=== PATIENT | female | born 1945 | race Caucasian/White ===

== ENCOUNTER 2017-02-02 06:33 | Inpatient (IN) | payer BC, MEDICARE ==
[2017-01-30 15:28] LABS: BASOPHILS # (AUTO) 0.1 (0.0-0.1); BASOPHILS % 0.8 % (0.0-1.0); EOSINOPHILS # (AUTO) 0.2 (0.0-0.4); HEMATOCRIT 35.7 % (34.2-44.1); HEMOGLOBIN 11.2 g/dL (12.0-16.0); LYMPHOCYTES # (AUTO) 1.8 (1.0-3.2); LYMPHOCYTES % 19.8 % (18.0-39.1); MEAN CORPUSCULAR HEMOGLOBIN 25.3 pg (28-32); MEAN CORPUSCULAR HGB CONC 31.4 g/dL (31-35); MEAN CORPUSCULAR VOLUME 80.8 fL (81-99); MONOCYTES # (AUTO) 0.8 (0.2-0.8); MONOCYTES % 8.3 % (4.4-11.3); NEUTROPHILS # (AUTO) 6.2 (2.1-6.9); NEUTROPHILS % 68.8 % (38.7-80.0); PLATELET COUNT 339 x10e3/uL (140-360); RED BLOOD COUNT 4.42 x10e6/uL (3.6-5.1); RED CELL DISTRIBUTION WIDTH 14.9 % (11.7-14.4)
[2017-01-30 15:40] LABS: ANION GAP 13.7 mmol/L (8-16); CALCIUM 8.9 mg/dL (8.4-10.2); CREATININE, SERUM 0.94 mg/dL (0.57-1.11); POTASSIUM 3.7 mmol/L (3.5-5.1)
[~2017-02-02] VITALS: Ht 167.6 cm; Wt 89.8 kg
[~2017-02-02 06:33] MED LIST: BUSPIRONE HCL5 MG PO; LOSARTAN-HCTZ1 EACH PO; ROPIVACAINE 246.25 MG, EPINEPHRINE HCL 1:1000 0.5 MG, CLONIDINE HCL 0.08 MG, KETOROLAC ... INJ ONE; SERTRALINE HCL100 MG PO; SYNTHROID100 MCG PO
[2017-02-02] MEDS ORDERED: VANCOMYCIN 1GM/NS 250 ML 250 ML ONE (07:14)
[2017-02-02] MEDS ORDERED: GABAPENTIN 300 MG CAP ONE (07:14)
[2017-02-02] MEDS ORDERED: DEXAMETHASONE SOD PHOS 10 MG/1 ML VIAL ONE (07:14)
[2017-02-02] MEDS ORDERED: CELECOXIB 200 MG CAP ONE (07:29)
[2017-02-02] MEDS ORDERED: MUPIROCIN 2% OINT 22 GM TUBE ONE (08:17)
[2017-02-02] MEDS ORDERED: TRANEXAMIC ACID 1,000 MG/10 ML ML ONE (08:17)
[2017-02-02] MEDS ORDERED: BACITRACIN 50,000 UNIT VIAL ONE (08:18)
[2017-02-02] MEDS ORDERED: SODIUM CHLORIDE 0.9% 1000ML 1,000 ML IV SCH (10:12)
[2017-02-02] MEDS ORDERED: DIPHENHYDRAMINE HCL INJ 50 MG/ML VIAL IM/IV PRN (10:15)
[2017-02-02] MEDS ORDERED: ZOLPIDEM TARTRATE 5 MG TAB PO PRN (10:15)
[2017-02-02] MEDS ORDERED: ACETAMINOPHEN 650 MG SUPP PR PRN (10:15)
[2017-02-02] MEDS ORDERED: KETOROLAC TROMETHAMINE 30 MG/ML VIAL IV PRN (10:15)
[2017-02-02] MEDS ORDERED: PROMETHAZINE HCL (IM) 25 MG/ML VIAL INJ PRN (10:15)
[2017-02-02] MEDS ORDERED: DOCUSATE SODIUM 100 MG CAP PO PRN (10:15)
[2017-02-02] MEDS ORDERED: ONDANSETRON HCL INJ 2 MG/ML VIAL IV PRN (10:15)
[2017-02-02] MEDS ORDERED: HYDROCODONE/APAP 5MG-325MG TAB PO PRN (10:15)
[2017-02-02] MEDS ORDERED: FENTANYL CITRATE/PF 100MCG/2 ML INJ ONE ×2 (11:45→13:32)
--- NOTE | 2017-02-02 11:54 | Diagnostic Imaging Report ---
PROCEDURE: X-RAY RIGHT KNEE, ONE OR TWO VIEWS COMPARISON: None. INDICATIONS:POST RIGHT KNEE SURGERY FINDINGS: See conclusion. CONCLUSION: Status post total right knee replacement with surrounding soft tissue swelling, air and gigi consistent with recent surgery. Orthopedic screw tracts are noted within the proximal tibial metadiaphysis presumably related to prior operative fixation. No acute fractures. Dictated by: Juan A Pinto M.D. on 02/02/2017 at 12:02 Electronically approved by: Juan A Pinto M.D. on 02/02/2017 at 12:02
[2017-02-02] MEDS ORDERED: ACETAMINOPHEN 1000 MG/100 ML IV SCH (12:00)
[2017-02-02 12:35] VITALS: BP 145/66
[2017-02-02] MEDS ORDERED: SUCCINYLCHOLINE 200 MG/10 ML SYR ONE (12:55)
[2017-02-02] MEDS ORDERED: ETOMIDATE 40 MG/ 20ML VIAL IV ONE (12:55)
[2017-02-02] MEDS ORDERED: ONDANSETRON HCL INJ 2 MG/ML VIAL ONE (13:06)
[2017-02-02] MEDS ORDERED: SEVOFLURANE INHAL SOLN 250 ML PEN BTL ONE (13:06)
[2017-02-02] MEDS ORDERED: DEXAMETHASONE SOD PHOS INJ 4 MG/ML VIAL ONE (13:06)
[2017-02-02] MEDS ORDERED: EPHEDRINE SULFATE INJ 50 MG/10 ML SYR ONE (13:06)
[2017-02-02] MEDS ORDERED: LIDOCAINE HCL 2% LOCAL INJ 5 ML SDV VIAL INJ ONE (13:06)
[2017-02-02] MEDS ORDERED: PROPOFOL IV EMULSION 10 MG/ML 20 ML VIAL ONE (13:06)
[2017-02-02] MEDS ORDERED: MIDAZOLAM HCL 2 MG/2 ML VIAL ONE (13:32)
[2017-02-02] MEDS ORDERED: BUPIVACAINE 0.25% 30ML SDV INJ ONE (13:40)
[2017-02-02] MEDS ORDERED: EPINEPHRINE HCL INJ 1 MG/ML AMP ONE (13:40)
[2017-02-02 13:43] VITALS: BP 145/66
[2017-02-02] MEDS: ACETAMINOPHEN 1000 MG/100 ML IV SCH ×2 (14:00→20:00)
[2017-02-02] MEDS: ASPIRIN 325 MG TAB PO SCH (17:00)
[2017-02-02] MEDS ORDERED: BUSPIRONE HCL 5 MG TAB PO SCH ×2 (17:00→21:00)
[2017-02-02] MEDS: CELECOXIB 200 MG CAP PO SCH (17:00)
[2017-02-02] MEDS ORDERED: CELECOXIB 100 MG CAP PO SCH (17:00)
[2017-02-02 17:25] VITALS: BP 118/54
[2017-02-02] MEDS: VANCOMYCIN 1GM/NS 250 ML 250 ML IV SCH (19:38)
[2017-02-02 20:08] VITALS: BP 111/55
[2017-02-03 00:19] VITALS: BP 112/76
[2017-02-03] MEDS: ACETAMINOPHEN 1000 MG/100 ML IV SCH ×2 (02:52→08:00)
[2017-02-03 04:00] VITALS: BP 121/56
[2017-02-03] MEDS: HYDROCODONE/APAP 7.5MG-325MG 1 EA TAB PO PRN ×2 (04:54→09:07)
[2017-02-03] MEDS ORDERED: LEVOTHYROXINE SODIUM 100 MCG TAB PO SCH (06:00)
[2017-02-03 06:47] LABS: HEMATOCRIT 26.5 % (34.2-44.1); HEMOGLOBIN 8.4 g/dL (12.0-16.0)
[2017-02-03] MEDS: VANCOMYCIN 1GM/NS 250 ML 250 ML IV SCH (08:07)
[2017-02-03 08:08] VITALS: BP 134/58
[2017-02-03] MEDS ORDERED: SERTRALINE HCL 100 MG TAB PO SCH (09:00)
[2017-02-03] MEDS ORDERED: BUSPIRONE HCL 5 MG TAB PO SCH (09:00)
[2017-02-03] MEDS ORDERED: NON-FORMULARY MEDICATION (Losartan/Hydrochlorothiazide (Losartan-Hctz 50-12.5 Mg Tab) 1 TA PO SCH (09:00)
[2017-02-03] MEDS ORDERED: LOSARTAN POTASSIUM 25 MG TAB PO SCH (09:00)
[2017-02-03] MEDS ORDERED: HYDROCHLOROTHIAZIDE 25 MG TAB PO SCH (09:00)
[2017-02-03] MEDS: ASPIRIN 325 MG TAB PO SCH (09:07)
[2017-02-03] MEDS: CELECOXIB 200 MG CAP PO SCH (09:07)
--- NOTE | 2017-02-03 09:21 | Operative Report ---
DATE OF PROCEDURE: February 02, 2017 PREOPERATIVE DIAGNOSIS: Osteoarthritis, right knee with retained hardware. POSTOPERATIVE DIAGNOSIS: Osteoarthritis, right knee with retained hardware. PROCEDURE: Right total knee arthroplasty with hardware removal. ANIMATION PRODUCER: Kehinde Lewis PA-C The patient was brought to the operating room for induction of anesthesia. Throughout this case, my PA's assistance was necessary for retraction of soft tissue and positioning of the extremity. This allows for efficient and technically successful execution of the operation and is considered medically necessary. 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 She has failed conservative management and wishes to proceed with a right total knee replacement. She is status post a previous tibial tubercle osteotomy. She has patella baja. The risks and benefits and added challenges of operating on a previously operated knee have been explained. She states she understands and wishes to proceed. DESCRIPTION OF PROCEDURE: The patient was brought to the operating room and placed under general anesthetic. She received prophylactic antibiotics, a regional block, and tranexamic acid in the holding area. Her right lower extremity was prepped and draped in a sterile manner. A preoperative time out was performed. The extremity was exsanguinated and a proximal tourniquet was inflated to 300 mmHg. An anterior incision incorporating the previous scar was made. Dense subcutaneous scar tissue was encountered. The soft tissue was carefully mobilized. A medial parapatellar arthrotomy was performed. More limited medial exposure was performed than usual due to the valgus deformity. The knee was brought up into flexion. The patella was really tight. There was no evidence of any remaining anterior cruciate ligament. The posterior cruciate ligament was sacrificed. Marginal osteophytes and meniscal remnants were removed. A Marks and Nephew posterior stabilized knee system was used. The proximal tibia was resected using an extramedullary cutting guide. The cut was referenced off of the least affected medial compartment. The tibial baseplate was noted to be a size #5. The central fin punch was impacted and attention was directed towards the distal femur. An intramedullary cutting guide was used to resect the distal femur in 6 degrees of valgus, and rotation referenced off of a combination of landmarks including Nicholas's line, the epicondylar axis, and the posterior condyles. Some posterolateral hypoplasia was taken into account. A +2 mm cut was necessary due to the excessive lateral femoral condylar wear. The femur was sized at #6. The anterior and posterior chamfer cuts were made. A lamina onsite health coach was placed. The lateral soft tissues were released as necessary to balance the knee in flexion and extension. A trial reduction was initiated. It was clear that the central fin was impacting into the hardware of the proximal tibia. The 2 previous tibial tubercle osteotomy screws were removed. The central fin seated nicely afterwards. Trial reductions revealed appropriate soft tissue balancing in flexion and extension with an 11-mm posterior stabilized tibial insert. Of note, the distal femur also had a box cut. The patella was resurfaced with a 32 mm x 7.5 mm patellar button. The thickness was checked before and after and was 22 mm. The trial implants were then all removed. The knee was thoroughly irrigated with a Pulsavac. A 100 mL premixed pericapsular injection was placed. The components were then cemented into place using a single mix of high-viscosity Simplex cement preloaded with antibiotics. Care was taken to remove all extravasated cement. The wound was further irrigated while the cement cured. The arthrotomy was then closed with interrupted #1 Ethibond. The skin was closed with subcuticular Vicryl and gigi. She was extubated and transported to the recovery room in stable condition. Blood loss was minimal. All needle and sponge counts were correct. Job#: [id number]
[2017-02-03] MEDS ORDERED: ACETAMINOPHEN 1000 MG/100 ML IV PRN (10:15)
[2017-02-03 12:21] VITALS: BP 118/68
[2017-02-03] MEDS ORDERED: ASPIRIN325 MG PO (12:21)
[2017-02-03] MEDS ORDERED: NORCO 7.5-3251 EACH PO (12:26)
== END 2017-02-03 13:13 | disposition home or self-care (01) | DRG 470 ==
LOC: OR 06:33 → MED/SURG 11:33
PROVIDERS: ADMIT Specialist; ATTEND Specialist
PROC: 0QPG04Z Removal of Internal Fixation Device from Right Tibia, Open Approach (ICD-10-PCS; 2017-02-02)
PROC: 0SRC0J9 Replacement of Right Knee Joint with Synthetic Substitute, Cemented, Open Approach (ICD-10-PCS; principal; 2017-02-02 08:30)
DX: M17.11 Unilateral primary osteoarthritis, right knee (principal); D64.9 Anemia, unspecified; I10 Essential (primary) hypertension; K29.70 Gastritis, unspecified, without bleeding
CPT/HCPCS: 36415; 80048; 85014; 85018; 85025; 86850; 86900; 86920; C1713; J0171; J1100; J1885; J2001; J2250; J2405; J2795; J3370

== ENCOUNTER → 2017-11-11 | Day surgery (SDC) | payer BC, MEDICARE ==
[2017-11-10 14:40] LABS: BASOPHILS # (AUTO) 0.1 (0.0-0.1); EOSINOPHILS # (AUTO) 0.3 (0.0-0.4); EOSINOPHILS % 3.1 % (0.0-6.0); HEMATOCRIT 34.5 % (34.2-44.1); HEMOGLOBIN 10.7 g/dL (12.0-16.0); LYMPHOCYTES # (AUTO) 1.5 (1.0-3.2); LYMPHOCYTES % 19.1 % (18.0-39.1); MEAN CORPUSCULAR HEMOGLOBIN 24.5 pg (28-32); MEAN CORPUSCULAR VOLUME 78.9 fL (81-99); MONOCYTES # (AUTO) 0.7 (0.2-0.8); MONOCYTES % 9.3 % (4.4-11.3); NEUTROPHILS # (AUTO) 5.4 (2.1-6.9); NEUTROPHILS % 67.2 % (38.7-80.0); PLATELET COUNT 335 x10e3/uL (140-360); RED BLOOD COUNT 4.37 x10e6/uL (3.6-5.1); RED CELL DISTRIBUTION WIDTH 15.9 % (11.7-14.4)
[2017-11-10 14:57] LABS: ANION GAP 14.8 mmol/L (8-16); CALCIUM 9.2 mg/dL (8.4-10.2); CREATININE, SERUM 1.08 mg/dL (0.57-1.11); POTASSIUM 3.8 mmol/L (3.5-5.1)
[~2017-11-11] MED LIST changes: +ASPIRIN325 MG PO; +BUPIVACAINE 0.25%/EPI 30ML SDV INJ ONE; +FENTANYL CITRATE/PF 100MCG/2 ML INJ ONE; +LEVAQUIN500 MG PO; +LIDOCAINE 2%/ EPINEPHRINE 20ML MDV ONE; +LIDOCAINE HCL 2% LOCAL INJ 5 ML SDV VIAL INJ ONE; +MIDAZOLAM HCL 2 MG/2 ML VIAL ONE; +NORCO 7.5-3251 EACH PO; +PROPOFOL IV EMULSION 10 MG/ML 20 ML VIAL ONE; -ROPIVACAINE 246.25 MG, EPINEPHRINE HCL 1:1000 0.5 MG, CLONIDINE HCL 0.08 MG, KETOROLAC ... INJ ONE; +SEVOFLURANE INHAL SOLN 250 ML PEN BTL ONE; +VANCOMYCIN 1GM/NS 250 ML 250 ML ONE
[2017-11-11 12:45] VITALS: BP 120/47
--- OUTSIDE RECORDS SUMMARY | 2017-12-01 07:13 | XMS REPORT | Continuity of Care Document ---
Author Author Justin clara [facility] Interface Address Unknown Phone Unavailable Problems Problem Status Onset Date Classification Date Reported Comments Source Aftercare following joint replacement surgery 04/07/2017 07/08/2017 [facility] [place] RT KNEE REPLACEMENT Active 02/24/[address] [facility] Discharge Diagnosis: Left buttock pain 01/20/2016 01/23/2016 [facility] Discharge Diagnosis: Lumbar back sprain 01/20/2016 01/23/2016 [facility] Discharge Diagnosis: Lumbar contusion 01/20/2016 01/23/2016 [facility] Discharge Diagnosis: Fall at home 01/20/2016 01/23/2016 [facility] Discharge Diagnosis: Contusion of buttock 01/20/2016 01/23/2016 [facility] Discharge Diagnosis: Benign essential hypertension 01/20/2016 01/23/2016 [facility] FALL Active 01/19/2016 [facility] Anxiety Resolved Problem 07/10/2017 [facility] Chronic UTI Resolved Problem 07/10/2017 [facility] Depression Resolved Problem 07/10/2017 [facility] HTN (<span ID="[id number]">Confirmed</span>) Resolved Problem 07/10/2017 [facility] Hypothyroidism Resolved Problem 07/10/2017 [facility] Obesity Active Problem 07/10/2017 [facility] Difficulty in walking, not elsewhere classified 07/08/[address] [facility] Other abnormalities of gait and mobility 07/08/[address] [facility] Pain in right knee 07/08/[address] [facility] Essential hypertension 07/08/[address] [facility] Other specified postprocedural states 07/08/[address] [facility] Presence of right artificial knee joint 07/08/[address] [facility] Stiffness of right knee, not elsewhere classified 07/08/[address] [facility] Muscle weakness 07/08/[address] [facility] Medications Medication Details Route Status Patient Instructions Ordering Provider Order Date Source Hydrochlorothiazide 12.5 MG / Losartan Potassium 50 MG Oral Tablet 1 tab, PO, Daily, # 90 tab, 1 Refill(s), Pharmacy: [facility] Active 01/01/2017 [facility] Cyclobenzaprine hydrochloride 10 MG Oral Tablet [Flexeril] 10 mg, PO, TID, PRN Muscle Spasm, X 10 day, # 30 tab, 0 Refill(s) Active 01/20/2016 [facility] Saline Flush 0.9% 10 mL, Route: IVP, Drug Form: INJ, Dosing Weight 84.091, kg, PRN, PRN Line Flush, Start date: 01/19/16 21:06:00 ROAD CROSSING GUARD, Duration: 30 day, Stop date: 02/18/16 21:05:00 CSTNotes: (Same as: BD Posiflush) No Longer Active 01/20/2016 [facility] Zofran 8 mg, Route: IVP, Drug form: INJ, ONCE, Dosing Weight 84.091, kg, Priority: STAT, Start date: 01/19/16 21:05:00 ROAD CROSSING GUARD, Stop date: 01/19/16 21:05:00 ROAD CROSSING GUARD Inactive 01/20/2016 [facility] Ativan 1 mg, Route: IVP, Drug form: INJ, ONCE, Dosing Weight 84.091, kg, Priority: STAT, Start date: 01/19/16 21:04:00 ROAD CROSSING GUARD, Stop date: 01/19/16 21:04:00 RO[address] CROSSING GUARD Inactive 01/20/2016 [facility] Morphine 4 mg, Route: IV, ONCE, Dosing Weight 84.091, kg, Priority: STAT, Start date: 01/19/16 20:57:00 ROAD CROSSING GUARD, Stop date: 01/19/16 20:57:00 ROAD CROSSING GUARD Inactive 01/20/2016 [facility] Allergies, Adverse Reactions, Alerts Substance Category Reaction Severity Reaction type Status Date Reported Comments Source penicillins Assertion Drug allergy Active [facility] Immunizations Immunization Date Given Site Status Last Updated Comments Source influenza virus vaccine, inactivated 11/11/2016 Right deltoid completed [place] Results Order Name Results Value Reference Range Date Interpretation Comments Source Spine lumbar 2 or 3 views DX Spine lumbar 2 or 3 views DX Spine lumbar 2 or 3 views DX 01/19/2016 9:[address] CROSSING GUARD Ordering Physician: Kaveh Giles MD CLINICAL INDICATION: Pain Post Trauma; fall injury earlier today lower back pain COMPARISON: None TECHNIQUE: AP and lateral views of the lumbosacral spine were obtained. FINDINGS: No acute fracture, subluxation, or dislocation is present. Normal alignment is maintained. Minimal degenerative grade 1 L4 over L5 anterolisthesis is present. No unexpected radiopaque foreign body is present. Electrode neurostimulator is noted in the left pelvis. IMPRESSION: No acute abnormality of the lumbosacral spine. SL: SSENDOS-PC 01/19/2016 - - Read by: Kalyn Escalante MD Dictated Date/time: 01/19/16 22:19 Electronically Signed by: Kalyn Escalante MD 01/19/16 22:20 FINAL REPORT [facility] Pelvis AP DX Pelvis AP DX Pelvis AP DX 01/19/2016 9:[address] CROSSING GUARD Ordering Physician: Kaveh Giles MD CLINICAL INDICATION: Pain Post Trauma; fall injury earlier today, pain COMPARISON: None TECHNIQUE: Supine AP view of the pelvis was obtained. FINDINGS: No acute fracture, subluxation, or dislocation is present. Electrode neurostimulator is noted in the left hemipelvis. IMPRESSION: No acute abnormality of the pelvis. SL: SSENDOS-PC 01/19/2016 - - Read by: Kalyn Escalante MD Dictated Date/time: 01/19/16 22:22 Electronically Signed by: Kalyn Escalante MD 01/19/16 22:23 FINAL REPORT [facility] Vital Signs Vital Sign Value Date Comments Source Weight 87.727 01/01/2017 [facility] BMI Calculated 31.22 01/01/2017 [facility] Height 167.64 cm 01/01/2017 [facility] Temperature Oral (F) 98.4 F 01/01/2017 [facility] Heart Rate 76 01/01/2017 [facility] Systolic (mm Hg) 159 01/01/2017 [facility] Diastolic (mm Hg) 83 01/01/2017 [facility] Respitory Rate 17 01/20/2016 [facility] Systolic (mm Hg) 148 01/20/2016 [facility] Diastolic (mm Hg) 83 01/20/2016 [facility] Temperature Oral (F) 98.3 F 01/20/2016 [facility] Respitory Rate 17 01/20/2016 [facility] Systolic (mm Hg) 157 01/20/2016 [facility] Diastolic (mm Hg) 53 01/20/2016 [facility] Respitory Rate 14 01/20/2016 [facility] BMI Calculated 29.92 01/20/2016 [facility] Height 167.64 cm 01/20/2016 [facility] Weight 84.091 01/20/2016 [facility] Heart Rate 72 01/20/2016 [facility] Systolic (mm Hg) 188 01/20/2016 [facility] Diastolic (mm Hg) 70 01/20/2016 [facility] Temperature Oral (F) 98.4 F 01/20/2016 [facility] Encounters Location Location Details Encounter Type Encounter Number Reason For Visit Attending Provider ADM Date DC Date Status Source Outpatient [id number] AMIE PRALE 11/07/2014 [facility] Outpatient [id number] AMIE PRALE 11/13/2015 [facility] Emergency [id number] Kaveh Potepalov 01/20/2016 01/20/2016 [facility] Outpatient [id number] AMIE PRANGLE 11/11/2016 [facility] Outpatient [id number] AMIE PRANGLE 12/09/2016 [facility] Outpatient [id number] AMIE PRANGLE 01/01/2017 [facility] Outpatient [id number] Amie Prangle 01/01/2017 01/02/2017 [facility] OP Therapy Patients [id number] Juan A Pugh 03/03/2017 04/02/2017 [facility] Phone Message [id number] 07/06/2017 07/08/2017 [facility] Procedures Procedure Code Date Perfomer Comments Source Appendectomy [id number] [facility] Bladder<sup>1</sup> [id number] stimulation system inplant 08-22-2011 [facility] Cholecystectomy [id number] [facility] Knee [id number] [facility] Staple implantation procedure<sup>2</sup> [id number] stomach staple [facility] TARA - Total abdominal hysterectomy and bilateral salpingo-oophorectomy [id number] [facility] Thyroid [id number] [facility] Appendectomy [id number] [facility] Bladder<sup>1</sup> [id number] stimulation system inplant 08-22-[address] [facility] Cholecystectomy [id number] [facility] Knee [id number] [facility] Staple implantation procedure<sup>2</sup> [id number] stomach staple [facility] ATRA - Total abdominal hysterectomy and bilateral salpingo-oophorectomy [id number] [facility] Thyroid [id number] [facility] Appendectomy [id number] [facility] Bladder<sup>1</sup> [id number] stimulation system inplant 08-22-2011 [facility] Cholecystectomy [id number] [facility] Knee [id number] [facility] Staple implantation procedure<sup>2</sup> [id number] stomach staple [facility] TARA - Total abdominal hysterectomy and bilateral salpingo-oophorectomy [id number] [facility] Thyroid [id number] [facility]
--- OUTSIDE RECORDS SUMMARY | 2017-12-01 07:13 | XMS REPORT | Summary of Care ---
Author Author [facility] Address Unknown Phone Unavailable Encounter DEMIAN Daly(TY) [id number] Date(s): 03/03/17 - 04/01/17 [facility] Encounter Diagnosis Difficulty in walking, not elsewhere classified (Final) - Other abnormalities of gait and mobility (Final) - Pain in right knee (Final) - Essential (primary) hypertension (Final) - Other specified postprocedural states (Final) - Aftercare following joint replacement surgery (Final) - 04/06/17 Presence of right artificial knee joint (Final) - Stiffness of right knee, not elsewhere classified (Final) - Muscle weakness (generalized) (Final) - Discharge Disposition: Home or Self Care Attending Physician: Juan A Pugh MD Vital Signs No data available for this section Problem List Condition Effective Dates Status Health Status Informant Anxiety(Confirmed) Resolved Chronic Resolved UTI(Confirmed) Depression(Confirmed Resolved ) HTN Resolved (hypertension)(Confi rmed) Hypothyroidism(Confi Resolved rmed) Obesity(Confirmed) Active Allergies, Adverse Reactions, Alerts Substance Reaction Severity Status penicillins Active Medications No data available for this section Results No data available for this section Immunizations Given and Recorded Vaccine Date Status Refusal Reason influenza virus vaccine, inactivated 11/11/16 Given Procedures Procedure Date Related Diagnosis Body Site Status Appendectomy Completed Bladder1 Completed Cholecystectomy Completed Knee Completed Staple implantation procedure2 Completed TARA - Total abdominal hysterectomy and Completed bilateral salpingo-oophorectomy Thyroid Completed 1stimulation system inplant 08-22-2011 2stomach staple Social History Social History Type Response Smoking Status Never smoker; Exposure to Tobacco Smoke None; Cigarette Smoking Last 365 Days No; Reg Smoking Cessation Counseling No entered on: 01/01/17 Assessment and Plan No data available for this section
--- OUTSIDE RECORDS SUMMARY | 2017-12-01 07:13 | XMS REPORT ---
Author Author [facility] Address Unknown Phone Unavailable Care Team Providers Care Research Scientist Name Role Phone ARISTIDES MOORE Unavailable Unavailable HAMPEL, ANTHONY Unavailable Unavailable Problems This patient has no known problems. Allergies, Adverse Reactions, Alerts This patient has no known allergies or adverse reactions. Medications This patient has no known medications. Results Test Description Test Time Test Comments Text Results Atomic Results Result Comments KNEE RIGHT 1-2 VIEWS [place] [address] Patient Name: LADY MADHAV MR #: [id number] : 1945 Age/Sex: 72/F Req #: [id number] [facility] Physician: ARISTIDES MOORE MD Ordered by: ARISTIDES MOORE MD Report #: [id number] Location: MED/SURG Room/Bed: [facility] Procedure: [id number] DX/KNEE RIGHT 1-2 VIEWS Exam Date: 02/02/17 Exam Time: 1110 REPORT STATUS: Signed PROCEDURE: X-RAY RIGHT KNEE, ONE OR TWO VIEWS COMPARISON: None. INDICATIONS: POST RIGHT KNEE SURGERY FINDINGS: See conclusion. CONCLUSION: Status post total right knee replacement with surrounding soft tissue swelling, air and gigi consistent with recent surgery. Orthopedic screw tracts are noted within the proximal tibial metadiaphysis presumably related to prior operative fixation. No acute fractures. Dictated by: Aristides Campbell M.D. on 02/02/2017 at 12:02 Electronically approved by: Aristides Campbell M.D. on 02/02/2017 at 12:02 Dictated By: ARISTIDES CAMPBELL MD 1202 Transcribed By: ELSI on 02/02/17 1202 COPY TO: ARISTIDES MOORE MD CHEST 2 VIEWS [place] [address] Patient Name: LADY MADHAV MR #: [id number] : 1945 Age/Sex: 71/F Req #: [id number] Adm Physician: Ordered by: ANTHONY GALAN MD Report #: [id number] Location: OR Room/Bed: Procedure: [id number] DX/CHEST 2 VIEWS Exam Date: 12/03/16 Exam Time: 1715 REPORT STATUS: Signed PROCEDURE: Frontal and lateral views of the chest. COMPARISON: None. INDICATIONS: PRE-OPERATIVE CHEST X-RAY FOR BLADDER SLING FINDINGS: Lines/tubes: None. Lungs: The lungs are well inflated and clear. There is no evidence of pneumonia or pulmonary edema. Pleura: There is no pleural effusion or pneumothorax. Heart and mediastinum: The heart and the mediastinum are normal. Bones: No acute bony abnormality. Mild spondylosis of the midthoracic spine. IMPRESSION: 1. No acute cardiopulmonary disease. Lakisha Roberts M.D. Dictated by: Lakisha Roberts M.D. on 12/03/2016 at 18:21 Electronically approved by: Lakisha Roberts M.D. on 12/03/2016 at 18:21 Dictated By: JARVIS ROBERTS MD, MD 20 Transcribed By: ELSI on 12/03/161820 COPY TO: ANTHONY GALAN MD
--- OUTSIDE RECORDS SUMMARY | 2017-12-01 07:13 | XMS REPORT | Summary of Care ---
Author Author [facility] Address Unknown Phone Unavailable Encounter DEMIAN Daly(FIN) [id number] Date(s): 01/01/17 - 01/01/17 [facility] [address] [place] [address]- [phone] Discharge Disposition: Home or Self Care Attending Physician: Sam Celestin DO Vital Signs Most recent to 1 oldest [Reference Range]: Height 167.64 cm (01/01/17 1:44 PM) Temperature Oral 98.4 DegF [96.4-99.1 DegF] (01/01/17 1:44 PM) Blood Pressure 159/83 mmHg [90-140/60-90 mmHg] *HI* (01/01/17 1:44 PM) Peripheral Pulse 76 bpm Rate [60-100 bpm] (01/01/17 1:44 PM) Weight 87.727 kg (01/01/17 1:44 PM) Body Mass Index 31.22 m2 (01/01/17 1:44 PM) Problem List Condition Effective Dates Status Health Status Informant Anxiety(Confirmed) Resolved Chronic Resolved UTI(Confirmed) Depression(Confirmed Resolved ) HTN Resolved (hypertension)(Confi rmed) Hypothyroidism(Confi Resolved rmed) Obesity(Confirmed) Active Allergies, Adverse Reactions, Alerts Substance Reaction Severity Status penicillins Active Medications hydrochlorothiazide-losartan 12.5 mg-50 mg oral tablet 1 tab, PO, Daily, # 90 tab, 1 Refill(s), Pharmacy: [facility] Start Date: 01/01/17 Status: Ordered Results No data available for this section Immunizations Given and Recorded Vaccine Date Status Refusal Reason influenza virus vaccine, inactivated 11/11/16 Given Procedures Procedure Date Related Diagnosis Body Site Appendectomy Bladder1 Cholecystectomy Knee Staple implantation procedure2 TARA - Total abdominal hysterectomy and bilateral salpingo-oophorectomy Thyroid 1stimulation system inplant 08-22-2011 2stomach staple Social History Social History Type Response Smoking Status Never smoker; Exposure to Tobacco Smoke None; Cigarette Smoking Last 365 Days No; Reg Smoking Cessation Counseling No Assessment and Plan No data available for this section
--- OUTSIDE RECORDS SUMMARY | 2017-12-01 07:13 | XMS REPORT | Summary of Care ---
Author Author [facility] Organization [facility] Address Unknown Phone Unavailable Encounter DEMIAN Daly(TY) [id number] Date(s): 01/19/16 - 01/20/16 [facility] [address] [place] [address]- Discharge Diagnosis: Left buttock pain Discharge Diagnosis: Lumbar back sprain Discharge Diagnosis: Lumbar contusion Discharge Diagnosis: Fall at home Discharge Diagnosis: Contusion of buttock Discharge Diagnosis: Benign essential hypertension Discharge Disposition: Home or Self Care Attending Physician: Kaveh Giles MD Vital Signs 1 2 3 Most recent to oldest [Reference Range]: 167.64 cm (01/19/16 8:19 PM) Height 98.3 DegF (01/20/16 12:23 AM) 98.4 DegF (01/19/16 8:19 PM) Temperature Oral [96.4-99.1 DegF] 148/83 mmHg *HI* (01/20/16 12:23 AM) 157/53 mmHg *HI* (01/19/16 9:42 PM) 188/70 mmHg *HI* (01/19/16 8:19 PM) Blood Pressure [90-140/60-90 mmHg] 17 BRMIN (01/20/16 12:23 AM) 17 BRMIN (01/19/16 10:47 PM) 14 BRMIN (01/19/16 9:42 PM) Respiratory Rate [14-20 BRMIN] 72 bpm (01/19/16 8:19 PM) Peripheral Pulse Rate [60-100 bpm] 84.091 kg (01/19/16 8:19 PM) Weight 29.92 m2 (01/19/16 8:19 PM) Body Mass Index Problem List Condition Effective Dates Status Health Status Informant Anxiety(Confirmed) Resolved Chronic Resolved UTI(Confirmed) Depression(Confirmed Resolved ) HTN Resolved (hypertension)(Confi rmed) Hypothyroidism(Confi Resolved rmed) Obesity(Confirmed) Active Allergies, Adverse Reactions, Alerts Substance Reaction Severity Status penicillins Active Medications Ativan 1 mg, Route: IVP, Drug form: INJ, ONCE, Dosing Weight 84.091, kg, Priority: STAT , Start date: 01/19/16 21:04:00 MEAT PACKER, Stop date: 01/19/16 21:04:00 MEAT PACKER Start Date: 01/19/16 Stop Date: 01/19/16 Status: Completed Flexeril 10 mg oral tablet 10 mg, PO, TID, PRN Muscle Spasm, X 10 day, # 30 tab, 0 Refill(s) Start Date: 01/20/16 Stop Date: 01/30/16 Status: Ordered morphine Sulfate 4 mg, Route: IV, ONCE, Dosing Weight 84.091, kg, Priority: STAT, Start date: 05/01 20:57:00 MEAT PACKER, Stop date: 01/19/16 20:57:00 MEAT PACKER Start Date: 01/19/16 Stop Date: 01/19/16 Status: Completed Saline Flush 0.9% 10 mL, Route: IVP, Drug Form: INJ, Dosing Weight 84.091, kg, PRN, PRN Line Flush , Start date: 01/19/16 21:06:00 MEAT PACKER, Duration: 30 day, Stop date: 02/18/16 21:05 :00 MEAT PACKER Notes: (Same as: BD Posiflush) Start Date: 01/19/16 Stop Date: 01/20/16 Status: Discontinued Zofran 8 mg, Route: IVP, Drug form: INJ, ONCE, Dosing Weight 84.091, kg, Priority: STAT , Start date: 01/19/16 21:05:00 MEAT PACKER, Stop date: 01/19/16 21:05:00 MEAT PACKER Start Date: 01/19/16 Stop Date: 01/19/16 Status: Completed Results No data available for this section Immunizations No data available for this section Procedures Procedure Date Related Diagnosis Body Site [...]
--- OUTSIDE RECORDS SUMMARY | 2017-12-01 07:13 | XMS REPORT | Summary of Care ---
Author Author [facility] Address Unknown Phone Unavailable Encounter HQ Encntr_alias(FIN) [id number] Date(s): 07/06/17 - 07/07/[address], [address] [place] [address]- [phone] Vital Signs No data available for this [...]
--- NOTE | 2017-12-29 01:37 | Operative Report ---
DATE OF PROCEDURE: November 11, 2017 PREOPERATIVE DIAGNOSIS: Malfunctioning InterStim. POSTOPERATIVE DIAGNOSIS: Malfunctioning InterStim. OPERATIONS PERFORMED 1. Explantation and replacement of InterStim generator. 2. Electronic analysis and programming. 3. Supervision of fluoroscopy. No radiologist present. ANESTHESIA: General. COMPLICATIONS: None. CLINICAL SUMMARY: Lady Ramirez is a 72-year-old woman with refractory urge incontinence has responded very well to InterStim placement. The InterStim has been functional for a number of years and the batteries has run low. We are bringing the patient to the operating room to replace her InterStim and evaluate its functionality. Should the lead be intact and functional, we will not replace it. Patient is aware of the risks of bleeding, infection, injury to adjacent structures, the fact that she has a permanent implant that negates her ability to have some MRI examinations. She understood these risks and elected to proceed. OPERATIVE PROCEDURE IN DETAIL: Informed consent was verified. Lady Ramirez was properly identified, taken to operating room, placed on the operating table in the prone position with all pressure points carefully well padded following uneventful anesthetic induction. Patient's back and buttocks were prepared, draped in usual sterile fashion. An incision was made overlying the generator neurostimulator generator. It was carried through all layers of the skin and subcutaneous tissues in the capsule until we reached the stimulator. The stimulator was explanted. The single set screw was loosened. The lead was retrieved. We then tested the lead. All 4 leads seemed to evoke an appropriate response with the InterStim with the J-hook in the external stimulator box. Because we had a functional lead, we verified that it was correctly located. Fluoroscopy was utilized to prove that the appearance of the lead appeared to be well positioned in the correct right foramen. Irrigation with sterile water of the lead was performed. The lead was cleansed and thoroughly dried. It was then inserted into the header of the new InterStim pulse generator. Copious irrigation was performed of the pocket. The InterStim generator was placed into the pocket. We then placed the programming head over the generator and analysis was performed. All parameters and impedances were within acceptable limits. We then approximated the incision in 2 layers utilizing absorbable suture. Mastisol, Steri-Strips, and Bio-Occlusive dressing was applied and the patient was then uneventfully reversed from anesthesia and taken to recovery room in stable condition. Following the patient being awake, the pulse generator was programmed to the lead of optimal sensation and given explicit instructions on how to use the generator. There were no complications to the procedure. Patient tolerated the procedure well. Sponge and needle, instrument counts were all correct x2 at the end of the case. Estimated blood loss was minimal. Explicit postop instructions were given. Will follow the patient up in the office. Job#: [id number]
== END | disposition home or self-care (01) ==
LOC: OR 08:17
PROVIDERS: ATTEND Urology
DX: T85.193A Other mechanical complication of implanted electronic neurostimulator, generator, initial encounter (principal); N39.0 Urinary tract infection, site not specified; N39.46 Mixed incontinence; N81.10 Cystocele, unspecified; N32.81 Overactive bladder; N81.6 Rectocele; N95.2 Postmenopausal atrophic vaginitis; N36.41 Hypermobility of urethra; I10 Essential (primary) hypertension; F32.9 Major depressive disorder, single episode, unspecified; Z88.0 Allergy status to penicillin; Y83.8 Other surgical procedures as the cause of abnormal reaction of the patient, or of later complication, without mention of misadventure at the time of the procedure; Z01.810 Encounter for preprocedural cardiovascular examination; Z01.812 Encounter for preprocedural laboratory examination; Z79.82 Long term (current) use of aspirin; Z68.32 Body mass index [BMI] 32.0-32.9, adult
CPT/HCPCS: 36415; 64590; 76000; 80048; 85025; 88300; 93005; 95971; C1787; J2001 ×2; J2250; J3370; L8679; L8696